=== PATIENT | female | born 1995 | race Two or more races ===

== ENCOUNTER 2019-01-24 15:05 | Emergency (ER) | payer SELFPAY ==
[~2019-01-24] VITALS: Ht 154.9 cm; Wt 59.0 kg
--- NOTE | 2019-01-24 15:14 | NUR ---
patient [id number] from work, c/o chewst sharp pain 5/10 ps, non radiating. On room air, breathing evenly and unlabored. Connected to the monitor and pulse ox. Will continue to monitor accordingly.
--- NOTE | 2019-01-24 15:51 | NUR ---
urine collected and sent to lab.
[2019-01-24 17:28] VITALS: BP 104/63
--- NOTE | 2019-01-24 17:29 | NUR ---
Patient discharged to home in stable condition. Written and verbal after care instructions given. Patient verbalizes understanding of instruction.
== END 2019-01-24 17:29 | disposition home or self-care (01) ==
LOC: ER 15:08
DX: R07.89 Other chest pain (principal); J45.909 Unspecified asthma, uncomplicated; F12.10 Cannabis abuse, uncomplicated
CPT/HCPCS: 71045-TC; 84703-TC